=== PATIENT | male | born 1985 | race Caucasian/White ===

== ENCOUNTER 2019-01-21 17:22 | Inpatient (IN) ==
[2019-01-21] MEDS ORDERED: NS 1,000 ML IV ONE ×2 (17:34→18:11)
--- NOTE | 2019-01-21 17:51 | PROVIDER DOCUMENTATION ---
HPI-General Adult - General Chief Complaint: Seizure Stated Complaint: SEIZURES Time Seen by Provider: 01/21/19 17:32 Source: patient, family Allergies/Adverse Reactions: Patient Allergies Allergy/AdvReac Type Severity Reaction Status Date / Time No Known Allergies Allergy Verified 01/21/19 18:20 Home Medications: Home Medication List Medication Instructions Recorded Confirmed Last Taken Type NK [No Home Medications] 01/21/19 01/21/19 Unknown History - History of Present Illness -Gen Adult Nature of Presenting Problems: reports that [facility] for heroine OD and immediatel having muscle contraction which immediately brought to ED. also observe few muscle spasm episodes while in room. diaphoresis and tachycardia during the muscle contractions which lasts for 2-3 mins. pt is AOx4, understanding his condition and also asked to help him with his condition. Review of Systems - Adult - REVIEW OF SYSTEMS - ADULT Constitutional: reports: no symptoms reported Eyes: reports: no symptoms reported Ears, Nose, Mouth & Throat: reports: no symptoms reported Cardiovascular: reports: no symptoms reported Respiratory: reports: no symptoms reported Gastrointestinal: reports: no symptoms reported Genitourinary: reports: no symptoms reported Musculoskeletal: reports: no symptoms reported Integumentary: reports: no symptoms reported Neurological: reports: no symptoms reported Psychiatric: reports: no symptoms reported Endocrine: reports: no symptoms reported Hematologic/Lymphatic: reports: no symptoms reported Allergic/Immunologic: reports: no symptoms reported All Other Systems: Reviewed and Negative Past History - Adult - PAST MEDICAL HISTORY-ADULT Review of Records: reports: Old Records Reviewed, Nursing Assessment Review, Medications Reviewed, Social history reviewed & non-contributory. Major Childhood Illnesses: reports: denies history Cardiovascular: reports: denies history Respiratory: reports: denies history Gastrointestinal: reports: denies history Obstetrical/Gynecological: reports: denies history Genitourinary: reports: denies history Musculoskeletal: reports: denies history Neurological: reports: denies history Endocrine/Immune: reports: denies history Other Conditions: reports: denies history - IMMUNIZATION STATUS Childhood Immunizations: See Nurse Assessment Flu Vaccine: See Nurse Assessment - FAMILY HISTORY Family History: reviewed, not pertinent Physical Exam-General - PHYSICAL EXAM-ADULT Initial Vital Signs Reviewed: Yes - CONSTITUTIONAL General Appearance: alert, mild distress, moderate distress - EYES Eyes: PERRL/EOMI, pink conjunctivae - HEAD, EARS, NOSE, MOUTH & THROAT HENMT: normocephalic/atraumatic, moist mucous membranes, normal ENT inspection, TMs normal - NECK Neck: non-tender, full range of motion, supple - RESPIRATORY Respiratory: chest non-tender, lungs clear, normal breath sounds, no pleuratic chest pain - CARDIOVASCULAR Cardiovascular: normal peripheral pulses, regular rate, rhythm, no edema - GASTROINTESTINAL (ABDOMEN) Abdominal Exam: normal bowel sounds, non tender, soft, other (few scars and sternal extracavatum) - MUSCULOSKELETAL Back Exam: normal inspection, no CVA tenderness, no vertebral tenderness Extremity: normal range of motion, other (intermittentent contractions) - SKIN Integumentary: normal color, diaphoresis - NEUROLOGIC Neurologic: grossly normal, no motor/sensory deficits - PSYCHIATRIC Psych/Mental Status: oriented x 3 Progress - PLAN OF CARE/RESULTS Progress/Plan/Lab Results: Vital Signs - 8 hr 01/21/19 17:28 Temperature 98.2 F Pulse Rate 120 H Respiratory Rate 24 Blood Pressure 146/116 O2 Sat by Pulse Oximetry 99 Orders Category Date Time Status CBC WITH DIFF [HEME] Stat Lab 01/21/19 17:42 Ordered COMPREHENSIVE METABOLIC PANEL [CHEM] Stat Lab 01/21/19 17:42 Ordered URINALYSIS W/POSS RFLX CULT [URINALYSIS] Stat Lab 01/21/19 17:36 Uncollected URINE DRUG SCREEN Stat Lab 01/21/19 17:36 Uncollected 0.9% Sodium Chloride Inj [Ns] 1,000 ml Med 01/21/19 17:34 Active IV 999 mls/hr Result Diagrams: 01/21/19 17:52 01/21/19 17:42 - REASSESSMENT Reassessment #1 Time Reassessed: 02:07 Status: other (while in the room 3 episodes muscle ridgitty observed with tone protruded out. bolus fluids given, abx and ativan given which has helped pt myoclonus subsided. likely not seizure. but pt does have the wbc no fever. questionable of the serotonin syndrome or neuroleptic. ua shows yeast which was treated. will cont with abx. will admit pt to ed.) Departure - Departure Date of Disposition Decision: 01/21/19 Time of Disposition Decision: 17:51 DIAGNOSIS: Myoclonus Disposition: ADMITTED INPATIENT 09 Certified Medical Emergency: Emergent Condition: Stable - Critical Care Note This patient required my direct & personal management of CC.: No Attestation - Physician/ MIS Attestation The physician spent face to face time with patient:: Yes Advanced Practice Provider documentation review:: Supervising physician onsite and consulted in the evaluation and care of this patient. The physician did have a face to face encounter with the patient.
[2019-01-21] MEDS ORDERED: ATIVAN IV ONE (17:52)
[2019-01-21 18:08] LABS: BASO# 0.04 X1000 (0.0-0.2); BASO% 0.2 % (0.0-0.8); EOS# 0.23 X1000 (0.0-0.7); EOS% 1.1 % (0.0-10.0); HEMATOCRIT 43.8 % (42.0-52.0); HEMOGLOBIN 15.1 g/dL (14.0-18.0); IMM GRAN# 0.06 X1000 (0.0-0.04); IMM GRAN% 0.3 % (0.0-0.5); LYMPH# 1.69 X1000 (1.2-3.4); LYMPH% 8.1 % (20.5-51.1); MCHC 34.5 g/dL (33-37); MCV 84.2 FL (81-99); MONO# 1.36 X1000 (0.11-0.59); MONO% 6.5 % (1.7-9.3); MPV 12.3 FL (7.4-10.4); NEUT% 83.8 % (42.2-75.2); PLT 290 X1000 (130-400); RDW 13.4 % (11.5-14.5); WBC 20.78 X1000 (4.8-10.8)
[2019-01-21] MEDS ORDERED: ROCEPHIN 1 GM in NS 50 ML IV ONE (18:11)
[2019-01-21 18:20] LABS: URINE SOURCE CLEAN CATCH
[2019-01-21 18:26] LABS: AGAP 14; ALB/GLOB RATIO 1.2; ALKALINE PHOSPHATASE 84 U/L (32-122); BUN 12 mg/dL (8-22); CALCIUM 9.7 mg/dL (8.8-10.2); CHLORIDE 98 mmol/L (98-107); COSMO 274; CREATININE 0.9 mg/dL (0.7-1.2); ESTIMATED GFR > 60; GLUCOSE 138 mg/dL (70-104); GOT 33 U/L (10-34); GPT 23 U/L (10-44); POTASSIUM 4.3 mmol/L (3.5-5.1); SODIUM 136 mmol/L (136-145); TCO2 24 mmol/L (25-35); TOTAL BILIRUBIN 0.56 mg/dL (0.20-1.00); TOTAL PROTEIN 7.3 g/dL (6.3-8.3)
[2019-01-21 18:28] LABS: BILIRUBIN URINE NEGATIVE (NEGATIVE); BLOOD URINE TRACE (NEGATIVE); COLOR YELLOW; GLUCOSE URINE NEGATIVE (NEGATIVE); KETONE URINE NEGATIVE (NEGATIVE); LEUKOCYTES URINE LARGE (NEGATIVE); NITRITE URINE NEGATIVE (NEGATIVE); PROTEIN URINE TRACE mg/dL (NEGATIVE); SP GRAVITY URINE 1.022; TURBIDITY URINE HAZY (CLEAR); UROBILINOGEN URINE 2 mg/dL (NORMAL)
[2019-01-21 18:35] LABS: UR EPITHELIAL CELLS <10 /HPF (<10); URINE BACTERIA NEGATIVE /HPF; URINE WBC TNTC /HPF (<10)
[2019-01-21 18:36] LABS: URINE CASTS NONE SEEN; URINE CRYSTALS NONE SEEN; URINE YEAST PRESENT
[2019-01-21] MEDS ORDERED: DIFLUCAN 150 MG/NS 150 MG/75 ML IVPB IV ONE (18:37)
--- NOTE | 2019-01-21 18:46 | Diag Imaging Result Doc PS360 ---
EXAM: CHEST-2 VIEWS HISTORY: pna TECHNIQUE: Chest two views COMPARISON: None. FINDINGS: The lungs are well expanded. The heart is not enlarged. The vessels are not distended. There are no infiltrates. No pleural effusions. IMPRESSION: No pneumonia Electronically signed by Macario Reza 01/21/2019 6:44 PM
[2019-01-21 18:47] LABS: UR AMPHETAMINES QUAL PRESUMPTIVE POSITIVE (NONE DETECT); UR BARBITUATES QUAL NONE DETECTED (NONE DETECT); UR BENZODIAZEPIN QUAL NONE DETECTED (NONE DETECT); UR CANNABINOIDS QUAL PRESUMPTIVE POSITIVE (NONE DETECT); UR COCAINE QUAL NONE DETECTED (NONE DETECT); UR METHADONE QUAL NONE DETECTED (NONE DETECT); UR OPIATES QUAL PRESUMPTIVE POSITIVE (NONE DETECT); UR OXYCODONE QUAL NONE DETECTED (NONE DETECT); UR PCP QUAL NONE DETECTED (NONE DETECT)
[2019-01-21 19:20] LABS: INR 0.94; PROTIME 13.4 Seconds (11.0-16.0)
[2019-01-21 19:28] LABS: MAGNESIUM 1.8 mg/dL (1.5-2.7)
[2019-01-21 19:46] LABS: CK INDEX 0.9 (0.0-2.5); CK-MB 6.62 ng/mL (0.0-5.0)
[2019-01-21 19:56] LABS: PTT 33.5 Seconds (22.3-41.8)
--- NOTE | 2019-01-21 21:19 | Diag Imaging Result Doc PS360 ---
EXAM: CT HEAD W/O CONTRAST HISTORY: meningitis TECHNIQUE: CT brain without contrast COMPARISON: None. FINDINGS: Motion degrades image quality. No parenchymal hemorrhage. No epidural or subdural hematoma. No subarachnoid hemorrhage. No mass identified on this noncontrasted exam. No hydrocephalus. No sinus opacification. IMPRESSION: No hemorrhage. Negative brain CT without contrast. This exam was performed using automated exposure control, adjustment of mA or kV according to patient size, and/or use of iterative reconstruction technique. Electronically signed by Macario Reza 01/21/2019 9:17 PM
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
[2019-01-22] MEDS ORDERED: ATIVAN IV PRN (00:31)
[2019-01-22] MEDS: NS 1,000 ML IV SCH ×2 (01:17→12:55)
--- NOTE | 2019-01-22 02:01 | ED EKG INTERP ---
This chart was entered by Edelmira Castillo Scribe, acting as scribe for Aura Sidhu MD. EKG Interpretation - EKG Time of EKG reading by physician:: 18:12 EKG Read and Signed by:: Aura Sidhu EKG Interpretation (*Must complete 3 of following elements*): Abnormal Rate: 98 Rhythm: NSR [place]: normal QRS: LVH, other (possible L atrial enlargement) [place] Interval: normal ST Wave: normal Attestation - Physician/ MIS Attestation Patient care was provided by Advanced Practice Provider:: No The physician spent face to face time with patient:: Yes Advanced Practice Provider documentation review:: Supervising physician onsite and consulted in the evaluation and care of this patient. The physician did have a face to face encounter with the patient. This chart was documented by the indicated scribe, (Edelmira Castillo Scribe) and accurately reflects the services I performed and decisions made by me, Aura Sidhu MD, as attested by the provider's signature.
--- NOTE | 2019-01-22 09:03 | EKG Report ---
Test Performed on : 01/21/2019 6:12:29 PM Test Reason : ED. NO EKG ORDER FOR MUSE Blood Pressure : / mmHG Vent. Rate : 098 BPM Atrial Rate : 098 BPM P-R Int : 144 ms QRS Dur : 090 ms QT Int : 348 ms P-R-T Axes : 062 024 055 degrees QTc Int : 444 ms Normal sinus rhythm. Possible Left atrial enlargement Left ventricular hypertrophy Abnormal ECG No previous ECGs available Unconfirmed Result
[2019-01-22 09:51] LABS: HIV ANTIBODY SCREEN SEE COMMENTS
--- NOTE | 2019-01-22 09:58 | PROGRESS NOTE ---
DATE: 01/22/2019 SUBJECTIVE: This morning Mr. Elder refers to be feeling a lot better. The mother was at the bedside at the time of the encounter. Mr. Elder is said to have been discharged from [facility] yesterday because of opioid overdose. He was on his way to come to [facility] and started developing some cramps, and generalized myoclonic type of muscle twitching so was brought in here for questionable seizures. He has been observed in the ICU overnight. No seizure activity, and he refers to be feeling better. OBJECTIVE: Vital Signs: Current vitals show blood pressure 102/63, pulse 83, respirations 16, and temperature 99.8 degrees. General: Mr. Elder is a 33-year-old gentleman. He was in bed in no distress. HEENT: Mucosa is pink and moist. Anicteric. Acyanotic. Neck: Neck is supple. Chest: Good air entry bilateral. Lungs: There was no crepitations. No rhonchi. Cardiovascular: Regular rate and rhythm. No murmurs, no rubs, no gallops. GI: Abdomen is soft and nontender. Extremities: No pedal edema. ONLINE ADVERTISING MANAGER: Patient was sleepy but easily arousable and follows commands. Moves all extremities. Skin: Multiple tattoos all over. LABORATORY DATA: None for today, yesterday's have been reviewed. DIAGNOSTIC STUDIES: A chest x-ray on admission shows no pneumonia. A CT scan of the head showed no hemorrhage. ASSESSMENT: 1. Nausea and vomiting, muscle cramps and myoclonic jerks. I think this is all kind of related to medication side effects. Unsure if it is due to recreational drug intoxication or withdrawal. However, patient has not been evaluated, has been observed for almost 24 hours in the ICU. No more of those activities so we think he will be stable for discharge. We will start him on a regular diet, and get the staff to walk him around, and make sure he is stable enough to be discharged. 2. Myoclonic jerks, questionable seizures. None witnessed during the hospital observation. 3. History of recreational drug abuse. The patient has been counseled and the mother refers that the patient is actually going back to [facility] where he was there for about 3 months and signed himself out. The facility is willing to have him back for drug detoxification program. So, in general, Mr. Elder seems to be doing well. We are going to start him on regular diet, and get the staff to walk him on the floor. If he is doing well, we will discharge him to go back to [facility] drug rehab program. cc: Giovanny Chandra MD MTDD
[2019-01-22 10:00] LABS: BASO# 0.04 X1000 (0.0-0.2); BASO% 0.3 % (0.0-0.8); EOS# 0.47 X1000 (0.0-0.7); EOS% 3.4 % (0.0-10.0); HEMATOCRIT 38.7 % (42.0-52.0); HEMOGLOBIN 13.1 g/dL (14.0-18.0); IMM GRAN# 0.02 X1000 (0.0-0.04); IMM GRAN% 0.1 % (0.0-0.5); LYMPH# 2.25 X1000 (1.2-3.4); LYMPH% 16.4 % (20.5-51.1); MCH 28.7 PG (27-31); MCHC 33.9 g/dL (33-37); MCV 84.9 FL (81-99); MONO# 1.15 X1000 (0.11-0.59); MONO% 8.4 % (1.7-9.3); MPV 12.6 FL (7.4-10.4); NEUT% 71.4 % (42.2-75.2); PLT 220 X1000 (130-400); RBC 4.56 XMIL (4.7-6.1); RDW 13.5 % (11.5-14.5); WBC 13.73 X1000 (4.8-10.8)
[2019-01-22 10:26] LABS: AGAP 11; BUN 12 mg/dL (8-22); CALCIUM 8.9 mg/dL (8.8-10.2); CHLORIDE 104 mmol/L (98-107); COSMO 275; CREATININE 0.8 mg/dL (0.7-1.2); ESTIMATED GFR > 60; GLUCOSE 99 mg/dL (70-104); POTASSIUM 3.7 mmol/L (3.5-5.1); SODIUM 138 mmol/L (136-145); TCO2 23 mmol/L (25-35)
[2019-01-22 12:30] VITALS: BP 120/79
--- NOTE | 2019-01-23 05:58 | DISCHARGE SUMMARY ---
ADMISSION DATE: 01/21/2019 DISCHARGE DATE: 01/22/2019 CONSULTATION DURING ADMISSION: None. IMAGING STUDIES OF SIGNIFICANCE: 1. Chest x-ray on presentation showed no pneumonia. 2. A CT scan of the head was negative. ADMISSION DIAGNOSES: 1. Nausea, vomiting, muscle cramps and rigidity. 2. Seizure-like activity. 3. Leukocytosis. DIAGNOSES AT TIME OF DISCHARGE: 1. Nausea, vomiting, muscle cramps, and myoclonic jerks most likely related to medication side effects, improved. 2. Questionable seizures. The patient was observed in ICU over 24 hours and no evidence of that. 3. History of recreational drug abuse. 4. Clinical volume depletion. 5. Mild rhabdomyolysis. DISCHARGE MEDICATIONS: None. PRESENTING COMPLAINT: Muscle cramps, nausea, vomiting, and seizure-like activity. HISTORY OF PRESENTING COMPLAINT: Mr. Elder is a 33-year-old gentleman who is known to be using recreational drugs in the past. He was admitted to [facility] which is a drug rehab place in [facility] for over 3 weeks. Subsequently, he was discharged. The patient refers to have just been released from [place] yesterday after heroin overdose. In any case, on the way to rehab, he started having some muscle cramps, nausea, and vomiting. His mother brought him to the emergency room where he was evaluated. Urine toxicology was positive for opioids, amphetamine and cannabinoids. He was subsequently admitted to the ICU. HOSPITAL COURSE: Mr. Elder was admitted, and was adequately fluid resuscitated. He was neurologically observed overnight. He did not have any more jerky movement. No seizure was recorded. This morning he feels a lot better. We think he was volume depleted and dehydrated, and became symptomatic. It is also very possible he was either withdrawing or he was having intoxication from any of those recreational drugs. In any case, this morning he feels a lot better. No more cramps. No nausea or vomiting. He feels great. The mother was at the bedside at the time of the encounter, and she has reassured that she is taking him straight from the hospital to [facility] which is a rehab place. Mr. Elder was given his breakfast, which he tolerated well, and he has been able to walk on the floor without any difficulty. His current vitals show blood pressure is 120/79, pulse 105, and respirations 27. He is clinically stable for discharge. He is going to be transferred to [facility] by his mother. cc: Giovanny Chandra MD
== END 2019-01-22 14:04 | disposition home or self-care (01) | DRG 92 ==
LOC: ED 17:22 → SUATTDRO 22:44 → EDIPHOLD 22:44 → ICU 23:53
PROVIDERS: ATTEND Internal Medicine
CPT/HCPCS: 70450; 71020; 71046; 80048; 80053; 80101; 80301; 80307; 80324; 80345; 80346; 80353; 80358; 80361; 80365; 81001; 82550; 82553; 83605; 83735; 83992; 84484; 85025; 85610; 85730; 86701; 86703; 87040; 87088; 87389; 87390; 93005; G0431; G0434; G0479; G0480; J0696; J1450; J2060; J7030